=== PATIENT | female | born 1945 | race Caucasian/White ===

== ENCOUNTER 2017-01-22 10:57 | Observation (INO) | payer MEDICARE ==
--- NOTE | ~2017-01-22 | OP ---
Record Of Operation [facility] [address] [place]. [address] NAME: MIMI RICKETTS : 41 STATUS : DIS Nicole PAT#: [id number] AGE: 71 ADM/REG DATE : 01/22/17 MR#: [id number] REPORT SERV DATE: 01/23/17 DICTATED BY: REGINA DUNBAR. DATE: 01/23/17 REPORT STATUS : Draft TRANSCRIBED BY: CRISTIANO DATE: 01/23/17 DATE OF PROCEDURE: 01/22/2017 PROCEDURE DESCRIPTION: Loop recorder insertion. INDICATION: Atrial fibrillation, arrhythmia. LOCATION: Short Stay Bed #2. DragonRAD FRUIT PEELER: Madelin. RADIO COMMENTATOR: Regina Dunbar D.O. CONSENT: From the patient. DEVICE: Reveal LNQ11, serial number is [id number]. Location is left parasternal. R-wave measured at 0.4 mV. PROCEDURE DESCRIPTION: The patient was prepped and draped in usual sterile fashion. The desired insertion site was infiltrated locally with lidocaine. The incision tool was then used followed by the insertion tool with deployment of the device and excellent R-waves were demonstrated. The patient tolerated the procedure well. She was given discharge instructions. The wound was closed with surgical annette and a simple dressing. She will follow up next week in the office for staple removal. IMPRESSION: Successful loop recorder insertion for arrhythmia monitoring. PLAN: Follow up as scheduled. Final R-wave measurements were 0.45 mV. MARCELLA/CRISTIANO Regina Dunbar D.O. / [id number] CC: Nicanor Lopez M.D.
--- NOTE | ~2017-01-22 | OP ---
Record Of Operation [facility] [address] [place]. [address] NAME: MIMI RICKETTS : 41 STATUS : ADM Nicole PAT#: [id number] AGE: 71 ADM/REG DATE : 01/22/17 MR#: [id number] REPORT SERV DATE: 01/22/17 DICTATED BY: REGINA DUNBAR. DATE: 01/22/17 REPORT STATUS : Draft TRANSCRIBED BY: CRISTIANO DATE: 01/22/17 DATE OF PROCEDURE: 01/22/2017 PROCEDURE DESCRIPTION: Elective cardioversion. INDICATIONS: Symptomatic atrial fibrillation with rapid ventricular rate. This study performed by Dr. Dunbar. LOCATION: Cardiac Short Stay. ANESTHESIA: Provided by anesthesiology associates. BRIEF HISTORY: The patient with a recent admission to [facility] with atrial fibrillation and rapid ventricular response on a background of diabetes, chronic kidney disease, and hypertension. Following a time-out and successful completion of the transesophageal echocardiogram, the patient was observed to be stable. The heart rhythm was confirmed as atrial fibrillation and previously placed inferoposterior defibrillator pads were in place and stable/satisfactory. A single shock was delivered, 100 joules synchronized was promptly restoring normal sinus rhythm with PAC's. IMPRESSION: Successful cardioversion. PLAN: Continue diltiazem and Eliquis. Follow up with Dr. Dunbar. MARCELLA/CRISTIANO Regina Dunbar D.O. / [id number] CC: Regina Dunbar D.O.
--- NOTE | ~2017-01-22 | TEE ---
Transesophageal Echocardiogram [facility] [address] [place]. [address] NAME: MIMI RICKETTS : 41 STATUS : ADM Nicole PAT#: [id number] AGE: 71 ADM/REG DATE : 01/22/17 MR#: [id number] REPORT SERV DATE: 01/22/17 DICTATED BY: REGINA DUNBAR DATE: 01/22/17 REPORT STATUS : Draft TRANSCRIBED BY: CRISTIANO DATE: 01/22/17 PROCEDURE: Transesophageal echocardiogram. INDICATION: Symptomatic atrial fibrillation; pre-cardioversion, rule out intracardiac thrombus. This was performed at the short stay unit with [facility]. COMPLICATIONS: No complications. CONSENT: From the patient. PROCEDURE DESCRIPTION: The patient was in the fasted state, and after time-out was called and with the patient under continuous monitoring of blood pressure EKG telemetry and O2 saturation, the patient's heart rhythm was confirmed as atrial fibrillation with ventricular rate of approximately 90 to 100 beats per minute. She had taken diltiazem and Eliquis only on the day prior to this procedure and prior to arrival at the hospital. Labs were reviewed. The patient was identified and IV propofol administered by [facility]. The patient tolerated the procedure well. At the end of the procedure, a successful cardioversion was performed, restoring sinus rhythm. FINDINGS: Ventricles. The overall left ventricular size appears to be in the upper normal range and at least in the low normal range. No definite wall motion abnormalities observed. The left atrium was enlarged and spontaneous echo contrast is seen, but no organized thrombi. The left atrial appendage is relatively small, obviously fibrillating, and peak velocities recorded not greater than 40 cm/sec. The left superior pulmonary vein was visualized and Doppler waveform was normal without reversal of flow. The interatrial septum was intact. The right atrium was mildly increased in size. The right ventricle is grossly normal. There is no atrial septal defect or ventricular septal defect visualized. Color Doppler suggests a PFO present and very small jet from left to right. The aortic valve was trileaflet, opens well, no insufficiency. Mitral valve is grossly normal with mild central MR. Tricuspid valve grossly normal with mild central TR. Pulmonic valve not well seen. Pericardial space is grossly normal. Visualized segments of the aorta are unremarkable. CONCLUSION: 1. NO INTRACARDIAC THROMBUS. 2. SPONTANEOUS ECHO CONTRAST IN THE LEFT ATRIUM. 3. BIATRIAL ENLARGEMENT. 4. NOTICEABLY SMALL LEFT ATRIAL APPENDAGE. NO THROMBUS VISUALIZED. 5. NORMAL DOPPLER PATTERN OF THE LEFT SUPERIOR PULMONARY VEIN. 6. SMALL PFO, NEGATIVE BUBBLE STUDY. 7. MILD MITRAL REGURGITATION AND TRICUSPID REGURGITATION. OTHERWISE, VALVES LOOK FINE. 8. AORTA IS UNREMARKABLE. PLAN: Cardioversion. Transesophageal Echocardiogram [address] [address] NAME: MIMI RICKETTS : 41 STATUS : ADM Nicole PAT#: [id number] AGE: 71 ADM/REG DATE : 01/22/17 MR#: [id number] REPORT SERV DATE: 01/22/17 DICTATED BY: REGINA DUNBAR DATE: 01/22/17 REPORT STATUS : Draft TRANSCRIBED BY: CRISTIANO DATE: 01/22/17 SAT/CRISTIANO Regina Dunbar D.O. / [id number] CC: Regina Dunbar D.O.
[~2017-01-22 10:57] MED LIST: CARDIZEM LA300 MG PO; ELIQUIS 5 MG TAB5 MG PO; JANUMET XR 50-1 EAC1 PO; L20 PO; PRIN10 PO; TIMOLOL GEL0.25 % OPH; ULORIC40 MG PO; ZANTAC 150 PO
[2017-01-22 11:53] LABS: BASOPHILS 0.3 %; BASOPHILS ABSOLUTE 0.02 10/3/uL (0.0-0.16); EOSINOPHILS 0.7 %; EOSINOPHILS ABSOLUTE 0.04 10/3/uL (0.0-0.53); HEMATOCRIT 33.2 % (36.0-48.0); HEMOGLOBIN 10.7 g/dL (12.0-16.0); IMMATURE GRANULOCYTES ABSOLUTE 0.06 10/3/uL (0.0-0.11); LYMPHOCYTES 16.3 %; MEAN CORPUS HGB CONC 32.2 g/dL (32.0-36.0); MEAN CORPUSCULAR HEMOGLOB 28.5 pg (26.0-34.0); MEAN CORPUSCULAR VOLUME 88.3 fL (80-100); MEAN PLATELET VOLUME 9.8 fL (9.2-13.0); MONOCYTES 5.5 %; MONOCYTES ABSOLUTE 0.34 10/3/uL (0.21-1.20); NEUTROPHILS 76.2 %; NEUTROPHILS ABSOLUTE 4.67 10/3/uL (2.02-8.40); PLATELET COUNT 305 10/3/uL (150-400); RED CELL COUNT 3.76 10/6/uL (4.0-5.6); WHITE BLOOD CELLS 6.1 10/3/uL (4.5-10.5)
[2017-01-22 11:54] LABS: MANUAL DIFF NO %
[2017-01-22 12:01] LABS: CHLORIDE, SERUM 106 MMOL/L (96-112); CO2 (CARBON DIOXIDE) 24 MMOL/L (24-34); CREATININE 2.24 MG/DL (0.55-1.02); GFR AFRICAN AMERICAN 24 ML/MIN (>=60); GFR NON AFRICAN AMERICAN 21 ML/MIN (>=60); POTASSIUM, SERUM 4.6 MMOL/L (3.5-5.3); SODIUM, SERUM 140 MMOL/L (135-148)
[2017-01-22 12:04] LABS: BUN (BLOOD UREA NITROGEN) 32 MG/DL (6-23); GLUCOSE, SERUM 129 MG/DL (60-99)
[2017-01-23 03:50] LABS: BASOPHILS 0.4 %; BASOPHILS ABSOLUTE 0.02 10/3/uL (0.0-0.16); EOSINOPHILS 0.4 %; EOSINOPHILS ABSOLUTE 0.02 10/3/uL (0.0-0.53); HEMOGLOBIN 9.2 g/dL (12.0-16.0); IMMATURE GRANULOCYTES 0.7 %; IMMATURE GRANULOCYTES ABSOLUTE 0.04 10/3/uL (0.0-0.11); LYMPHOCYTES ABSOLUTE 1.29 10/3/uL (0.67-4.30); MEAN CORPUS HGB CONC 31.9 g/dL (32.0-36.0); MEAN CORPUSCULAR HEMOGLOB 28.3 pg (26.0-34.0); MEAN CORPUSCULAR VOLUME 88.6 fL (80-100); MEAN PLATELET VOLUME 9.9 fL (9.2-13.0); MONOCYTES 7.8 %; MONOCYTES ABSOLUTE 0.42 10/3/uL (0.21-1.20); NEUTROPHILS 66.7 %; NEUTROPHILS ABSOLUTE 3.59 10/3/uL (2.02-8.40); PLATELET COUNT 231 10/3/uL (150-400); RBC DISTRIBUTION WIDTH 16.5 % (12.0-16.0); RED CELL COUNT 3.25 10/6/uL (4.0-5.6); WHITE BLOOD CELLS 5.4 10/3/uL (4.5-10.5)
[2017-01-23 03:51] LABS: HEMATOCRIT 28.8 % (36.0-48.0)
[2017-01-23 03:52] LABS: MANUAL DIFF NO %
[2017-01-23 03:58] LABS: BUN (BLOOD UREA NITROGEN) 35 MG/DL (6-23); CALCIUM, SERUM 8.9 MG/DL (8.5-10.4); CHLORIDE, SERUM 108 MMOL/L (96-112); CO2 (CARBON DIOXIDE) 23 MMOL/L (24-34); GFR AFRICAN AMERICAN 22 ML/MIN (>=60); GFR NON AFRICAN AMERICAN 19 ML/MIN (>=60); POTASSIUM, SERUM 4.5 MMOL/L (3.5-5.3); SODIUM, SERUM 141 MMOL/L (135-148)
[2017-01-23 03:59] LABS: GLUCOSE, SERUM 127 MG/DL (60-99)
[2017-01-23 06:41] LABS: BASOPHILS 0.5 %; BASOPHILS ABSOLUTE 0.03 10/3/uL (0.0-0.16); EOSINOPHILS ABSOLUTE 0.06 10/3/uL (0.0-0.53); HEMOGLOBIN 9.7 g/dL (12.0-16.0); IMMATURE GRANULOCYTES 0.7 %; IMMATURE GRANULOCYTES ABSOLUTE 0.04 10/3/uL (0.0-0.11); LYMPHOCYTES 22.7 %; LYMPHOCYTES ABSOLUTE 1.36 10/3/uL (0.67-4.30); MEAN CORPUS HGB CONC 32.3 g/dL (32.0-36.0); MEAN CORPUSCULAR HEMOGLOB 28.6 pg (26.0-34.0); MEAN CORPUSCULAR VOLUME 88.5 fL (80-100); MEAN PLATELET VOLUME 9.8 fL (9.2-13.0); MONOCYTES 9.5 %; MONOCYTES ABSOLUTE 0.57 10/3/uL (0.21-1.20); NEUTROPHILS 65.6 %; NEUTROPHILS ABSOLUTE 3.93 10/3/uL (2.02-8.40); PLATELET COUNT 241 10/3/uL (150-400); RBC DISTRIBUTION WIDTH 16.2 % (12.0-16.0); RED CELL COUNT 3.39 10/6/uL (4.0-5.6)
[2017-01-23 06:43] LABS: MANUAL DIFF NO %
[2017-01-23 06:55] LABS: BUN (BLOOD UREA NITROGEN) 35 MG/DL (6-23); CALCIUM, SERUM 9.1 MG/DL (8.5-10.4); CHLORIDE, SERUM 109 MMOL/L (96-112); CO2 (CARBON DIOXIDE) 21 MMOL/L (24-34); CREATININE 2.32 MG/DL (0.55-1.02); GFR AFRICAN AMERICAN 23 ML/MIN (>=60); GFR NON AFRICAN AMERICAN 20 ML/MIN (>=60); POTASSIUM, SERUM 4.6 MMOL/L (3.5-5.3); SODIUM, SERUM 142 MMOL/L (135-148)
[2017-01-23 06:56] LABS: GLUCOSE, SERUM 123 MG/DL (60-99)
== END 2017-01-23 10:31 | disposition home or self-care (01) ==
LOC: SSUOP 10:57 → SSU1 11:06
PROVIDERS: Internal Medicine
PROC: 5A2204Z Restoration of Cardiac Rhythm, Single (ICD-10-PCS; principal; 2017-01-22)
PROC: 0JH602Z Insertion of Monitoring Device into Chest Subcutaneous Tissue and Fascia, Open Approach (ICD-10-PCS; 2017-01-22)
DX: I48.0 Paroxysmal atrial fibrillation (principal); I49.9 Cardiac arrhythmia, unspecified; I12.9 Hypertensive chronic kidney disease with stage 1 through stage 4 chronic kidney disease, or unspecified chronic kidney disease; E11.22 Type 2 diabetes mellitus with diabetic chronic kidney disease; N18.3 Chronic kidney disease, stage 3 (moderate); D64.9 Anemia, unspecified; E66.9 Obesity, unspecified; Z68.37 Body mass index [BMI] 37.0-37.9, adult; Z82.49 Family history of ischemic heart disease and other diseases of the circulatory system; Z80.51 Family history of malignant neoplasm of kidney; Z88.5 Allergy status to narcotic agent; Z88.0 Allergy status to penicillin; Z88.1 Allergy status to other antibiotic agents; Z91.018 Allergy to other foods; Z79.01 Long term (current) use of anticoagulants; Z79.899 Other long term (current) drug therapy
CPT/HCPCS: 33282; 80048; 82962; 85025; 92960; 93005; 93312; 93320; 93325; A9270-GY; C1764; G0378; J2250; J3010; J3370